=== PATIENT | male | born 1970 | race Caucasian/White ===

== ENCOUNTER 2021-08-26 15:20 | Emergency (ER) | payer BC ==
[~2021-08-26] VITALS: Ht 185.4 cm; Wt 120.2 kg
[~2021-08-26 15:20] MED LIST: NOHOMEMEDICATIONS; NORCO 5-325 TA1 EACH PO; PHENERGAN25 M2 RC; ZOFRAN ODT4 MG PO
[2021-08-26 15:28] VITALS: BP 135/84
== END 2021-08-26 15:50 | disposition home or self-care (01) ==
LOC: M.ERS 15:20
DX: S51.831A Puncture wound without foreign body of right forearm, initial encounter (principal); Z98.890 Other specified postprocedural states; Z91.038 Other insect allergy status; W45.0XXA Nail entering through skin, initial encounter; Y93.89 Activity, other specified; Y92.89 Other specified places as the place of occurrence of the external cause; Y99.8 Other external cause status